=== PATIENT | male | born 1950 | race Caucasian/White ===

== ENCOUNTER 2020-01-30 18:54 | Inpatient (IN) ==
[2020-01-30] MEDS ORDERED: MORPHINE 4 MG/1 ML VIAL IV STA (19:29)
[2020-01-30] MEDS ORDERED: ONDANSETRON 4 MG/2 ML VIAL IV PRN (19:36)
[2020-01-30] MEDS ORDERED: ACETAMINOPHEN 325 MG TABLET PO PRN (19:36)
[2020-01-30] MEDS: HYDROmorphone 2 MG/1 ML VIAL IV PRN (20:05)
[2020-01-30] MEDS: DEXTROSE 5% NACL 0.45% 1,000 ML IV SCH (20:05)
[2020-01-30 21:42] LABS: Hematocrit 41.9 VOL% (42.0-52.0); Hemoglobin 13.6 GM/DL (14.0-18.0)
[2020-01-30 22:28] LABS: Calcium 9.9 MG/DL (8.5-10.1); Osmolality,Calculated 286.4 MOS/KG (273-304)
[2020-01-30] MEDS: KETOROLAC 15 MG/1 ML VIAL IV SCH (22:48)
[2020-01-31 02:25] LABS: Basophils % 0.2 % (0.0-0.8); Hematocrit 36.4 VOL% (42.0-52.0); Hemoglobin 11.8 GM/DL (14.0-18.0); Immature Granulocytes % 0.6 %; Immature Granulocytes Absolute 0.07 #; Lymphocytes % 8.7 % (21.2-54.2); Mean Corpuscular HGB Conc 32.4 GM/DL (32-36); Mean Corpuscular Volume 90.3 FL (87-102); Mean Platelet Volume 9.7 FL (9.6-12.0); Monocytes % 7.5 % (1.7-12.7); Platelet Count 253 T/CUMM (130-400); Red Blood Count 4.03 MC/CUMM (3.8-5.5); Red Cell Distribution Width 13.9 % (9.3-17.3); White Blood Count 10.9 T/CUMM (4-12)
[2020-01-31 02:41] LABS: Albumin 3.5 G/DL (3.4-5.0); Bilirubin,Total 0.6 MG/DL (0.2-1.0); Calcium 9.4 MG/DL (8.5-10.1); Osmolality,Calculated 282.7 MOS/KG (273-304); Total Protein 6.9 G/DL (6.4-8.3)
[2020-01-31] MEDS: KETOROLAC 15 MG/1 ML VIAL IV SCH ×4 (04:13→22:59)
[2020-01-31] MEDS: DEXTROSE 5% NACL 0.45% 1,000 ML IV SCH ×2 (07:26→20:26)
[2020-01-31 08:36] LABS: Hematocrit 35.6 VOL% (42.0-52.0); Hemoglobin 11.6 GM/DL (14.0-18.0)
[2020-01-31] MEDS: PANTOPRAZOLE 40 MG TABLET PO SCH (08:50)
[2020-01-31] MEDS: HYDROmorphone 2 MG/1 ML VIAL IV PRN (14:34)
[2020-02-01] MEDS: KETOROLAC 15 MG/1 ML VIAL IV SCH ×4 (04:52→23:08)
[2020-02-01] MEDS: DEXTROSE 5% NACL 0.45% 1,000 ML IV SCH ×2 (04:54→11:09)
[2020-02-01 05:53] LABS: Basophils % 0.5 % (0.0-0.8); Eosinophils # 0.3 10*3/uL (0.0-0.87); Eosinophils % 4.1 % (0.00-10.9); Hematocrit 33.5 VOL% (42.0-52.0); Hemoglobin 10.8 GM/DL (14.0-18.0); Immature Granulocytes % 0.5 %; Immature Granulocytes Absolute 0.03 #; Lymphocytes # 1.4 10*3/uL (1.4-4.0); Lymphocytes % 22.3 % (21.2-54.2); Mean Corpuscular HGB Conc 32.2 GM/DL (32-36); Mean Corpuscular Volume 90.5 FL (87-102); Mean Platelet Volume 10.2 FL (9.6-12.0); Neutrophils % 61.6 % (38.7-73.9); Platelet Count 205 T/CUMM (130-400); Red Cell Distribution Width 13.8 % (9.3-17.3); White Blood Count 6.4 T/CUMM (4-12)
[2020-02-01 05:59] LABS: Calcium 8.6 MG/DL (8.5-10.1); Osmolality,Calculated 280.4 MOS/KG (273-304)
[2020-02-01] MEDS: PANTOPRAZOLE 40 MG TABLET PO SCH (08:46)
[2020-02-01] MEDS: HYDROmorphone 2 MG/1 ML VIAL IV PRN (08:50)
[2020-02-02] MEDS: DEXTROSE 5% NACL 0.45% 1,000 ML IV SCH ×2 (03:37→08:59)
[2020-02-02] MEDS: KETOROLAC 15 MG/1 ML VIAL IV SCH ×4 (04:41→22:53)
[2020-02-02 07:16] LABS: Basophils % 0.6 % (0.0-0.8); Eosinophils # 0.2 10*3/uL (0.0-0.87); Eosinophils % 4.2 % (0.00-10.9); Hemoglobin 10.9 GM/DL (14.0-18.0); Immature Granulocytes % 0.4 %; Immature Granulocytes Absolute 0.02 #; Lymphocytes # 1.1 10*3/uL (1.4-4.0); Lymphocytes % 19.9 % (21.2-54.2); Mean Corpuscular Volume 89.7 FL (87-102); Mean Platelet Volume 9.7 FL (9.6-12.0); Monocytes % 10.1 % (1.7-12.7); Neutrophils % 64.8 % (38.7-73.9); Platelet Count 188 T/CUMM (130-400); Red Blood Count 3.68 MC/CUMM (3.8-5.5); Red Cell Distribution Width 13.4 % (9.3-17.3); White Blood Count 5.4 T/CUMM (4-12)
[2020-02-02] MEDS: ALBUTEROL 1.25 MG/3 ML NEB RESP TX SCH ×2 (07:18→14:30)
[2020-02-02 07:27] LABS: Calcium 8.6 MG/DL (8.5-10.1)
[2020-02-02] MEDS: PANTOPRAZOLE 40 MG TABLET PO SCH (08:59)
[2020-02-02] MEDS ORDERED: ROPIVACAINE 0.5% 30 ML VIAL NERVEBLOCK ONE (11:08)
[2020-02-02] MEDS ORDERED: TRIAMCINOLONE ACETONIDE 40 MG/1 ML VIAL IM ONE (11:10)
[2020-02-02] MEDS ORDERED: TRIAMCINOLONE ACETONIDE 40 MG/1 ML VIAL MISC INJ ONE (11:30)
[2020-02-02] MEDS: HYDROmorphone 2 MG/1 ML VIAL IV PRN (20:11)
[2020-02-03] MEDS: DEXTROSE 5% NACL 0.45% 1,000 ML IV SCH ×4 (01:50→16:02)
[2020-02-03] MEDS: ALBUTEROL 1.25 MG/3 ML NEB RESP TX SCH ×4 (02:00→20:28)
[2020-02-03] MEDS: KETOROLAC 15 MG/1 ML VIAL IV SCH ×4 (04:36→22:48)
[2020-02-03] MEDS: PANTOPRAZOLE 40 MG TABLET PO SCH (08:54)
[2020-02-03] MEDS ORDERED: MAGNESIUM HYDROXIDE SUSP 30 ML UDCUP PO PRN (13:11)
[2020-02-04] MEDS: ALBUTEROL 1.25 MG/3 ML NEB RESP TX SCH ×3 (02:15→12:47)
[2020-02-04] MEDS: KETOROLAC 15 MG/1 ML VIAL IV SCH ×2 (06:26→11:29)
[2020-02-04] MEDS: DEXTROSE 5% NACL 0.45% 1,000 ML IV SCH (06:27)
[2020-02-04] MEDS ORDERED: ROPIVACAINE 0.5% 30 ML VIAL NERVEBLOCK ONE (07:25)
[2020-02-04] MEDS ORDERED: TRIAMCINOLONE ACETONIDE 40 MG/1 ML VIAL MISC INJ ONE (07:27)
[2020-02-04] MEDS ORDERED: ASPIRIN EC 81 MG TABLET PO SCH (09:00)
[2020-02-04] MEDS: PANTOPRAZOLE 40 MG TABLET PO SCH (09:58)
[2020-02-04 11:15] VITALS: BP 165/76
== END 2020-02-04 14:30 | disposition home or self-care (01) | DRG 205 ==
LOC: N.EDINP 18:54 → N.ED 18:54 → N.EDINP 21:11 → N.3E 21:21
PROVIDERS: ADMIT Surgery; ATTEND Surgery